=== PATIENT | female | born 1995 | race Caucasian/White ===

== ENCOUNTER 2016-07-23 14:13 | Observation (INO) | payer OTHER ==
[2016-07-23] MEDS ORDERED: PRENATAL PLUS I1 TAB PO (14:33)
[2016-07-23] MEDS ORDERED: DICLEGIS DR 101 EACH PO (14:33)
[2016-07-23] MEDS ORDERED: HALFPRIN81 MG PO (14:33)
[2016-07-23] MEDS ORDERED: ACTIGALL300 MG PO (14:33)
== END 2016-07-24 16:41 | disposition short-term general hospital (02) ==
LOC: LDROP 14:13 → LDRIP 14:13
PROVIDERS: ADMIT Family Medicine
DX: O14.93 Unspecified pre-eclampsia, third trimester (principal); O26.613 Liver and biliary tract disorders in pregnancy, third trimester; K83.1 Obstruction of bile duct; O24.419 Gestational diabetes mellitus in pregnancy, unspecified control; L29.9 Pruritus, unspecified; J32.9 Chronic sinusitis, unspecified; Z3A.34 34 weeks gestation of pregnancy; Z79.82 Long term (current) use of aspirin; Z79.899 Other long term (current) drug therapy
CPT/HCPCS: G0378; G0379; J0702; J1815

== ENCOUNTER 2016-08-12 19:50 | Inpatient (IN) | payer OTHER ==
[~2016-08-12] VITALS: Ht 157.5 cm; Wt 71.2 kg
[~2016-08-12 19:50] MED LIST: ACTIGALL300 MG PO; DICLEGIS DR 101 EACH PO; HALFPRIN81 MG PO; PRENATAL PLUS I1 TAB PO
[2016-08-15] MEDS ORDERED: MOTRIN800 MG PO (10:29)
[2016-08-15] MEDS ORDERED: DERMOPLAST PAIN78 GM TOP (10:30)
[2016-08-15] MEDS ORDERED: COLACE100 MG PO (10:31)
[2016-08-15] MEDS ORDERED: LAN-O-SOOTHE7 GM TOP (10:34)
== END 2016-08-15 18:50 | disposition short-term general hospital (02) | DRG 775 ==
LOC: LDRIP 19:50
PROVIDERS: ADMIT Family Medicine
PROC: 10E0XZZ Delivery of Products of Conception, External Approach (ICD-10-PCS; principal; 2016-08-13)
PROC: 3E033VJ Introduction of Other Hormone into Peripheral Vein, Percutaneous Approach (ICD-10-PCS; principal; 2016-08-13)
PROC: 10907ZC Drainage of Amniotic Fluid, Therapeutic from Products of Conception, Via Natural or Artificial Opening (ICD-10-PCS; principal; 2016-08-13)
PROC: 3E0P7GC Introduction of Other Therapeutic Substance into Female Reproductive, Via Natural or Artificial Opening (ICD-10-PCS; principal; 2016-08-13)
DX: O24.429 Gestational diabetes mellitus in childbirth, unspecified control (principal); K83.1 Obstruction of bile duct; O26.62 Liver and biliary tract disorders in childbirth; Z3A.36 36 weeks gestation of pregnancy; Z37.0 Single live birth; O13.4 Gestational [pregnancy-induced] hypertension without significant proteinuria, complicating childbirth
CPT/HCPCS: A9150; J2300; J2310; J2370; J2590; J2795; J3010; J3490